=== PATIENT | female | born 1985 | race Caucasian/White ===

== ENCOUNTER 2016-12-26 15:19 | Emergency (ER) | payer OTHER ==
--- NOTE | 2016-12-26 15:59 | PROVIDER DOCUMENTATION ---
HPI-Chest Pain - General Source: patient - History of Present Illness-CP Location: reports: central Chest Pain Radiation: reports: back Quality of Pain: reports: aching Severity in ED: mild Onset/Duration: just prior to arrival (1400pm) Context/Activities at Onset: reports: light activity Modifying Factors: improves with: nothing Associated Symptoms: reports: shortness of breath. denies: abdominal pain, back pain, fever/chills, headache, syncope, vomiting Similar Symptoms Previously?: No Recently Seen Here or By Another Healthcare Provider: No <Elke Gordillo - Last Filed: 12/26/16 18:02> <Jaison Jones - Last Filed: 12/27/16 06:11> - General Chief Complaint: Chest Pain Stated Complaint: CHEST PAIN (32 WKS PREG) Time Seen by Provider: 12/26/16 15:40 Allergies/Adverse Reactions: Patient Allergies Allergy/AdvReac Type Severity Reaction Status Date / Time No Known Allergies Allergy Verified 12/26/16 16:24 Home Medications: Home Medication List Medication Instructions Recorded Confirmed Last Taken Type Multivit with Calcium,Iron,Min 1 tab PO DAILY 04/20/16 12/26/16 12/26/16 History [One Daily Women's] Nitrofurantoin [place]/Macrocryst 1 tab PO BID 07/14/16 07/14/16 07/14/16 History [Macrobid] Pnv Comb.no58/Iron Bisgly/FA 1 tab PO DAILY 07/14/16 07/14/16 07/14/16 History [ Capsule] Nitrofurantoin [place]/Macrocryst 100 mg PO BID #14 capsule 12/26/16 Unknown Rx [Macrobid] - History of Present Illness-CP Nature of Presenting Problem: 31 y/o F presents to ED cc of chest pain and heart racing. Pt is 32 weeks preg. Pt states she was driving home from work around 1400pm and had a sensation of her heart racing. Pt states after having palpitations she starting have some chest pain that radiated through her back with some shortness of breathe. Pt also reports having increased edema in bilat legs. Pt denies calf tenderness. Pt states before being preg she had to take Xanax to help control her anxiety and has not had any since . Pt states since being she has had more episodes of palpitation with no chest pain . Pt denies any leakage/ pain. (Elke Gordillo) Review of Systems - Adult - REVIEW OF SYSTEMS - ADULT Constitutional: denies: chills, fever Eyes: denies: blurred vision, double vision Ears, Nose, Mouth & Throat: denies: ear pain, throat pain Cardiovascular: reports: chest pain, palpitations Respiratory: reports: shortness of breath. denies: cough Gastrointestinal: denies: abdominal pain, diarrhea, nausea, vomiting Genitourinary: denies: dysuria, hematuria Musculoskeletal: denies: bone pain, back pain Neurological: denies: dizziness/vertigo, headache/migraines <Elke Gordillo - Last Filed: 12/26/16 18:02> Past History - Adult - PAST MEDICAL HISTORY-ADULT Review of Records: reports: Old Records Reviewed, Nursing Assessment Review Psychiatric: reports: anxiety Other Conditions: reports: denies history - PRIOR SURGERIES/PROCEDURES Surgical/Procedure History: reports: (x3) - PRIOR HOSPITALIZATIONS Prior Hospitalizations: reports: none - IMMUNIZATION STATUS Childhood Immunizations: See Nurse Assessment Flu Vaccine: See Nurse Assessment - FAMILY HISTORY Family History: reviewed, not pertinent - SOCIAL HISTORY Smoking: less than 1 pack/day Provider spent 3-5 mins advising pt. on dangers of tobacco.: Discussed manners to quit use, and f/u contacts for add'l counseling. Substance Use: denies <Elke Gordillo - Last Filed: 12/26/16 18:02> Physical Exam-General - PHYSICAL EXAM-ADULT Initial Vital Signs Reviewed: Yes - CONSTITUTIONAL General Appearance: appears well, alert, no apparent distress, other (32 wk preg ) - EYES Eyes: pink conjunctivae - NECK Neck: non-tender, full range of motion - RESPIRATORY Respiratory: chest non-tender, lungs clear, normal breath sounds - CARDIOVASCULAR Cardiovascular: normal peripheral pulses, no edema, tachycardia - GASTROINTESTINAL (ABDOMEN) Abdominal Exam: normal bowel sounds, non tender, soft, other (32 wk / gravid umbilicus palpable below xiphoid process) - MUSCULOSKELETAL Back Exam: no CVA tenderness, no vertebral tenderness Extremity: normal range of motion, non-tender, normal gait - SKIN Integumentary: normal color, normal turgor, warm/dry - NEUROLOGIC 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 States she is feeling better.) Reassessment #2 Time Reassessed: 17:54 Status: improving (Pt is texting on phone and in no pain . Pt understands plan . ) - XRAY 1 XRAY: Bilateral XRAY Study: Chest Impression: Normal XRAY Interpretation: No acute abnormality <Elke Gordillo - Last Filed: 12/26/16 18:02> <Jaison Jones - Last Filed: 12/27/16 06:11> - PLAN OF CARE/RESULTS Progress/Plan/Lab Results: PLAN: CHEST XRAY WHILE SHIELDING THE BABY, EKG, LABS PT VERBALLY UNDERSTANDS THE PLAN Laboratory Tests 12/26/16 12/26/16 12/26/16 16:12 16:12 16:12 WBC 13.11 H RBC 3.26 L Hgb 10.5 L Hct 31.1 L MCV 95.4 MCH 32.2 H MCHC 33.8 RDW Std Deviation 12.5 Plt Count 290 MPV 10.6 H Immature Gran % (Auto) 1.7 H Neut % (Auto) 61.6 Lymph % (Auto) 24.3 [place] % (Auto) 11.1 H Eos % (Auto) 1.1 Baso % (Auto) 0.2 Immature Gran # (Auto) 0.22 H Neut # (Auto) 8.08 H Lymph # (Auto) 3.19 [place] # (Auto) 1.45 H Eos # (Auto) 0.14 Baso # (Auto) 0.03 Sodium 135 L Potassium 3.8 Chloride 100 Carbon Dioxide 22 L Anion Gap 13 BUN 8 Creatinine 0.7 Estimated GFR/1.73 m2 > 60 BUN/Creatinine Ratio 11 Glucose 100 Calculated Osmolality 269 Calcium 8.6 L Total Bilirubin < 0.10 L AST 10 ALT 9 L Alkaline Phosphatase 92 Creatine Kinase 33 Troponin T < 0.010 Total Protein 5.7 L Albumin 3.2 L Globulin 2.5 Albumin/Globulin Ratio 1.3 Urine Source Urine Color Urine Turbidity Urine pH Ur Specific [place] Urine Protein Ur Glucose (Stick) Ur Ketones (Stick) Urine Blood Urine Nitrite Urine Bilirubin Urobilinogen Dipstick Urine Leukocytes Urine WBC (Auto) Urine RBC (Auto) U Epithel Cells (Auto) Urine Bacteria (Auto) 12/26/16 17:25 WBC RBC Hgb Hct MCV MCH MCHC RDW Std Deviation Plt Count MPV Immature Gran % (Auto) Neut % (Auto) Lymph % (Auto) [place] % (Auto) Eos % (Auto) Baso % (Auto) Immature Gran # (Auto) Neut # (Auto) Lymph # (Auto) [place] # (Auto) Eos # (Auto) Baso # (Auto) Sodium Potassium Chloride Carbon Dioxide Anion Gap BUN Creatinine Estimated GFR/1.73 m2 BUN/Creatinine Ratio Glucose Calculated Osmolality Calcium Total Bilirubin AST ALT Alkaline Phosphatase Creatine Kinase Troponin T Total Protein Albumin Globulin Albumin/Globulin Ratio Urine Source CLEAN CATCH Urine Color STRAW Urine Turbidity CLEAR Urine pH 7.0 Ur Specific [place] 1.004 Urine Protein NEGATIVE Ur Glucose (Stick) NEGATIVE Ur Ketones (Stick) NEGATIVE Urine Blood NEGATIVE Urine Nitrite POSITIVE A Urine Bilirubin NEGATIVE Urobilinogen Dipstick NORMAL Urine Leukocytes NEGATIVE Urine WBC (Auto) <10 Urine RBC (Auto) <10 U Epithel Cells (Auto) <10 Urine Bacteria (Auto) 4+ Orders Category Date Time Status Cardiac Monitoring DIRECTED Care 12/26/16 16:05 Active Saline Loc NOW Care 12/26/16 16:05 Active CHEST-2 VIEWS [RAD] Stat Exams 12/26/16 16:05 Draft CBC WITH ELECTRONIC DIFF [HEME] Stat Lab 12/26/16 16:12 Completed CK PROFILE [SP CHEM] Stat Lab 12/26/16 16:12 Completed COMPREHENSIVE METABOLIC PANEL [CHEM] Stat Lab 12/26/16 16:12 Completed TROPONIN T Stat Lab 12/26/16 16:12 Completed URINALYSIS [URINALYSIS] Stat Lab 12/26/16 17:25 Completed EKG [EKG] Stat Ther 12/26/16 16:05 Draft Vital Signs - 24 hr 12/26/16 15:25 Temperature 97.2 F L Pulse Rate 123 H Respiratory 20 Rate Blood Pressure 139/75 O2 Sat by Pulse 100 Oximetry (Elke Gordillo) Patient had no vaginal leakage of fluids or contractions. Feeling better at time of discharge. (,Vincent J.) Departure - Departure Time of Disposition Order: 17:46 Certified Medical Emergency: Emergent <Elke Gordillo - Last Filed: 12/26/16 18:02> <Jaison Jones - Last Filed: 12/27/16 06:11> - Departure DIAGNOSIS: Hyperventilation syndrome, Palpitations UTI (urinary tract infection) Qualifiers: Urinary tract infection type: site unspecified Hematuria presence: without hematuria Qualified Code(s): N39.0 - Urinary tract infection, site not specified Disposition: HOME 01 Condition: Stable Additional Instructions: ED Follow Up Instructions: You have been treated by a care provider in the Emergency Department. These instructions are being provided to you so you can have an understanding of how to care for yourself upon discharge. Upon discharge from the Emergency Department, you are responsible for making arrangements for follow-up care by a physician of your choice. Take all prescribed medications as directed. Return to the Emergency Department immediately for any new or worsening symptoms. You may call the Physician Referral phone number at [phone] to obtain a list of Physicians who are taking new patients. Prescriptions: Nitrofurantoin [place]/Macrocryst [Macrobid] 100 mg PO BID #14 capsule Referrals: None,PCP [Primary Care Provider] - Forms: Return to School/Parent Work Instructions: Hyperventilation, Urinary Tract Infection, [id number], Palpitations, [id number] Attestation - Scribe Verification/Attestation Scribe:: Elke Gordillo Acting as Scribe for:: Jaison Jones Scribe documention review:: This chart was documented by a scribe and accurately reflects the service the provider performed and the decisions made by the provider. <Elke Gordillo - Last Filed: 12/26/16 18:02> Physician Attestation - Physician Attestation I, the provider, attest to the following statement:: Jaison Jones Physician documentation Attestation:: This documentation recorded by the scribe accurately reflects the service I personally performed and the decisions made by me. <Jaison Jones - Last Filed: 12/27/16 06:11>
--- NOTE | 2016-12-26 16:13 | EKG Report ---
Test Performed on : 12/26/2016 3:28:54 PM Test Reason : Chest Pain Blood Pressure : / mmHG Vent. Rate : 103 BPM Atrial Rate : 103 BPM P-R Int : 154 ms QRS Dur : 074 ms QT Int : 334 ms P-R-T Axes : 022 009 021 degrees QTc Int : 437 ms Sinus tachycardia. Minimal voltage criteria for LVH, may be normal variant Cannot rule out Anterior infarct , age undetermined Abnormal ECG No previous ECGs available Unconfirmed Result
--- NOTE | 2016-12-26 16:23 | ED EKG INTERP ---
EKG Interpretation - EKG Time of EKG reading by physician:: 15:28 EKG Read and Signed by:: Jaison Jones EKG Interpretation (*Must complete 3 of following elements*): Abnormal Rate: 103 Rhythm: sinus tachy [place]: normal QRS: LVH CA Interval: normal ST Wave: normal
[2016-12-26 16:35] LABS: MANUAL DIFF NEEDED? NO
[2016-12-26 16:40] LABS: BASO% 0.2 % (0.0-0.8); EOS# 0.14 X1000 (0.0-0.7); EOS% 1.1 % (0.0-10.0); HEMATOCRIT 31.1 % (37.0-47.0); HEMOGLOBIN 10.5 g/dL (12.0-16.0); IMM GRAN# 0.22 X1000 (0.0-0.04); IMM GRAN% 1.7 % (0.0-0.5); LYMPH# 3.19 X1000 (1.2-3.4); LYMPH% 24.3 % (20.5-51.1); MCH 32.2 PG (27-31); MCHC 33.8 g/dL (33-37); MCV 95.4 FL (81-99); MONO# 1.45 X1000 (0.11-0.59); MONO% 11.1 % (1.7-9.3); MPV 10.6 FL (7.4-10.4); NEUT% 61.6 % (42.2-75.2); PLT 290 X1000 (130-400); RBC 3.26 XMIL (4.2-5.4)
[2016-12-26 17:01] LABS: AGAP 13; ALBUMIN 3.2 g/dL (3.5-5.0); ALKALINE PHOSPHATASE 92 U/L (32-104); BUN 8 mg/dL (8-22); CALCIUM 8.6 mg/dL (8.8-10.2); CHLORIDE 100 mmol/L (98-107); CK PROFILE 33 U/L (24-173); COSMO 269; GOT 10 U/L (10-30); GPT 9 U/L (10-36); POTASSIUM 3.8 mmol/L (3.5-5.1); SODIUM 135 mmol/L (136-145); TCO2 22 mmol/L (25-35); TOTAL BILIRUBIN < 0.10 mg/dL (0.20-1.00); TOTAL PROTEIN 5.7 g/dL (6.3-8.3)
--- NOTE | 2016-12-26 17:04 | Diag Imaging Result Document ---
PROCEDURE NAME: CHEST-2 VIEWS - 12/26/2016 FRONTAL AND LATERAL CHEST, 2 VIEWS: FINDINGS: The lungs are well expanded. The heart is not enlarged. The vessels are not distended. No pneumonia. No pleural effusions. IMPRESSION: No acute abnormality.
[2016-12-26 17:49] LABS: URINE MICRO REVIEW NEEDED? NO; URINE SOURCE CLEAN CATCH
[2016-12-26 17:57] LABS: BILIRUBIN URINE NEGATIVE (NEGATIVE); BLOOD URINE NEGATIVE (NEGATIVE); COLOR STRAW; GLUCOSE URINE NEGATIVE (NEGATIVE); LEUKOCYTES URINE NEGATIVE (NEGATIVE); NITRITE URINE POSITIVE (NEGATIVE); PROTEIN URINE NEGATIVE (NEGATIVE); SP GRAVITY URINE 1.004; TURBIDITY URINE CLEAR (CLEAR); UROBILINOGEN URINE NORMAL (NORMAL)
[2016-12-26 17:58] LABS: UR EPITHELIAL CELLS <10 /HPF (<10); URINE BACTERIA 4+ /HPF; URINE RBC <10 /HPF (<10); URINE WBC <10 /HPF (<10)
[2016-12-26 18:13] VITALS: BP 120/74
== END 2016-12-26 18:26 | disposition home or self-care (01) ==
LOC: ED 15:19
DX: O23.43 Unspecified infection of urinary tract in pregnancy, third trimester (principal); O26.893 Other specified pregnancy related conditions, third trimester; F45.8 Other somatoform disorders; R00.2 Palpitations; R94.31 Abnormal electrocardiogram [ECG] [EKG]; R07.89 Other chest pain; M54.9 Dorsalgia, unspecified; R06.02 Shortness of breath; O12.03 Gestational edema, third trimester; O99.333 Smoking (tobacco) complicating pregnancy, third trimester; F17.210 Nicotine dependence, cigarettes, uncomplicated; Z3A.32 32 weeks gestation of pregnancy; Z71.6 Tobacco abuse counseling
CPT/HCPCS: 71020; 80053; 81001; 82550; 84484; 85025; 93005

== ENCOUNTER 2017-02-09 08:43 | Inpatient (IN) ==
[2017-02-06 11:28] LABS: HEMATOCRIT 31.2 % (37.0-47.0); HEMOGLOBIN 10.3 g/dL (12.0-16.0); MCH 31.1 PG (27-31); MCV 94.3 FL (81-99); RBC 3.31 XMIL (4.2-5.4)
[2017-02-09] MEDS ORDERED: PEPCID PO ONE (08:46)
[2017-02-09] MEDS ORDERED: LR 1,000 ML IV SCH (08:46)
[2017-02-09] MEDS ORDERED: KEFZOL 1 GM/D5W 1 GM/50 ML IVPB IV PRN (08:46)
[2017-02-09] MEDS ORDERED: REGLAN PO ONE (08:46)
[2017-02-09] MEDS ORDERED: XYLOCAINE-MPF 2% ONE (09:51)
--- NOTE | 2017-02-09 10:08 | HISTORY AND PHYSICAL ---
HISTORY OF PRESENT ILLNESS: The patient is a 32-year-old, G 5, P 3-0-1-3 with intrauterine at 38 weeks. complications include prior x3. Desires sterility. The patient presents for a repeat section with bilateral tubal ligation. The risks, benefits, and alternatives were discussed with the patient and she desires to proceed. PAST MEDICAL HISTORY: None. PAST SURGICAL HISTORY: section x3. 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 OB HISTORY: Term x3. SAB x1. SOCIAL HISTORY: Positive tobacco. PHYSICAL EXAMINATION: VITAL SIGNS: Patient afebrile. Vital signs stable. GENERAL: Patient in no acute distress. ABDOMEN: Soft, gravid, nontender to palpation. RESPIRATORY: Respirations nonlabored. VASCULAR: No peripheral vascular abnormalities noted. ASSESSMENT AND PLAN: A 32-year-old, 5 para 3-0-1-3 with intrauterine at 38 weeks. We will proceed to the operating room for repeat section and bilateral tubal ligation. cc: Nikky Byrd MD
[2017-02-09 10:26] LABS: URINE SOURCE VOIDED
[2017-02-09 10:26] LABS: MANUAL DIFF NEEDED? NO
[2017-02-09 10:28] LABS: BASO% 0.2 % (0.0-0.8); EOS# 0.16 X1000 (0.0-0.7); EOS% 1.7 % (0.0-10.0); HEMATOCRIT 30.4 % (37.0-47.0); IMM GRAN# 0.09 X1000 (0.0-0.04); LYMPH# 2.46 X1000 (1.2-3.4); LYMPH% 26.7 % (20.5-51.1); MCH 30.8 PG (27-31); MCHC 32.9 g/dL (33-37); MCV 93.5 FL (81-99); MONO% 9.8 % (1.7-9.3); MPV 11.1 FL (7.4-10.4); NEUT% 60.6 % (42.2-75.2); PLT 227 X1000 (130-400); RBC 3.25 XMIL (4.2-5.4)
[2017-02-09 10:29] LABS: BILIRUBIN URINE NEGATIVE (NEGATIVE); BLOOD URINE NEGATIVE (NEGATIVE); CLARITY CLEAR (CLEAR); COLOR YELLOW; GLUCOSE URINE NEGATIVE (NEGATIVE); LEUKOCYTES URINE TRACE (NEGATIVE); NITRITE URINE NEGATIVE (NEGATIVE); PROTEIN URINE NEGATIVE (NEGATIVE); UROBILINOGEN URINE NORMAL
[2017-02-09] MEDS ORDERED: DURAMORPH ONE (11:13)
[2017-02-09] MEDS ORDERED: FENTANYL ONE (11:14)
[2017-02-09] MEDS ORDERED: BICITRA PO ONE (11:15)
[2017-02-09] MEDS ORDERED: SODIUM CHLORIDE 0.9% INJ ONE (11:15)
[2017-02-09] MEDS ORDERED: PEPCID IV ONE (11:15)
[2017-02-09] MEDS ORDERED: EPHEDRINE ONE (11:17)
[2017-02-09] MEDS ORDERED: ZOFRAN ONE (12:23)
[2017-02-09] MEDS ORDERED: PITOCIN ONE ×2 (12:26)
[2017-02-09] MEDS ORDERED: BENADRYL ONE (12:51)
[2017-02-09] MEDS ORDERED: PITOCIN 20 UNITS/LR 20 UNITS/1,000 ML IV.SOLN IV ONE (13:04)
[2017-02-09] MEDS ORDERED: M-M-R II VACCINE SUBQ ONE (13:04)
[2017-02-09] MEDS ORDERED: PHENERGAN IM PRN (13:04)
[2017-02-09] MEDS ORDERED: DEMEROL IM PRN (13:04)
[2017-02-09] MEDS ORDERED: AMBIEN PO PRN (13:04)
[2017-02-09] MEDS ORDERED: MYLICON PO PRN (13:04)
[2017-02-09] MEDS ORDERED: NORCO-5 PO PRN ×2 (13:04→13:29)
[2017-02-09] MEDS ORDERED: CYTOTEC PO PRN (13:04)
[2017-02-09] MEDS ORDERED: HYDROXYZINE IM PRN (13:04)
[2017-02-09] MEDS ORDERED: DULCOLAX PR PRN (13:04)
[2017-02-09] MEDS ORDERED: PITOCIN IM PRN (13:04)
[2017-02-09] MEDS ORDERED: DEMEROL PO PRN ×2 (13:04)
[2017-02-09] MEDS ORDERED: HYDROXYZINE PO PRN (13:04)
[2017-02-09] MEDS ORDERED: BOOSTRIX VACCINE IM ONE (13:04)
[2017-02-09] MEDS ORDERED: NARCAN INJ PRN (13:29)
[2017-02-09] MEDS ORDERED: BENADRYL IV PRN (13:29)
[2017-02-09] MEDS ORDERED: ZOFRAN IV PRN ×2 (13:29)
[2017-02-09] MEDS ORDERED: ZOFRAN ODT PO PRN (13:29)
[2017-02-09] MEDS ORDERED: NORCO-10 PO PRN (13:30)
[2017-02-09] MEDS: TORADOL IV SCH ×2 (13:42→19:45)
--- NOTE | 2017-02-09 18:12 | OPERATIVE NOTE ---
PROCEDURE DATE: 02/09/2017 PREOPERATIVE DIAGNOSES: 1. Intrauterine at 38 weeks. 2. Prior section x3. 3. Desires sterility. 4. Gestational hypertension. POSTOP DIAGNOSES: 1. Intrauterine at 38 weeks. 2. Prior section x3. 3. Desires sterility. 4. Gestational hypertension. PROCEDURE: Repeat low segment transverse section with bilateral tubal ligation. SURGEON: Dr. Byrd. AUTHORIZATION COORDINATOR: Dr. Solano ESTIMATED BLOOD LOSS: 500 mL. COMPLICATIONS: None. COUNTS: Correct x2. FINDINGS: Viable male weighing 9 pounds 7 ounces. Grossly normal uterus, bilateral fallopian tubes and ovaries. INDICATIONS FOR PROCEDURE: Patient is a 32-year-old G5, P3-0-1-3 with intrauterine at 38 weeks. Patient with elevated blood pressure 3rd trimester during . Labs returned within normal limits. Also a prior x3, desires sterility so decision made to proceed to the operating room for repeat section with bilateral tubal ligation. Risks, benefits, alternatives discussed with patient, she desires to proceed. PROCEDURE IN DETAIL: After proper informed consent was obtained the patient was taken to the operating room and placed in dorsal supine position with adequate spinal anesthesia. Abdomen was prepped and draped the normal sterile fashion for abdominal surgery. After proper time-out was performed a low transverse incision was made over prior scar using the scalpel. This was carried down to the underlying fascia which was scored in the midline. Fascial incision was extended laterally and cephalic using Brownlee scissors. Inferior aspect of fascial defect was grasped with Francisco clamps and dissected off the underlying rectus abdominis muscles. Similar was carried out to the superior aspect of the fascial defect. Muscles were in the midline, peritoneum was entered bluntly and stretched using pocketed spring machine operator's hand, bladder blade was placed to protect the bladder. A low transverse incision was made on the uterus and stretched using pocketed spring machine operator's hand, amniotomy was performed with return of clear fluid. was delivered in the vertex presentation with a nuchal cord reduced at the hysterotomy. Remainder of the fetus delivered without difficulty. Cord was doubly clamped, cut and was handed off to waiting pediatric staff. Placenta was delivered via fundal massage. The uterus was exteriorized and cleared free of all clot and debris. The hysterotomy was reapproximated using #1 chromic in a running locking fashion with additional [id number] sutures for added hemostasis. Attention was then turned to bilateral tubal ligation. The right fallopian tube was grasped carried out to the fimbria, mid- isthmic portion was then grasped with a Otis clamp and double suture ligated with loop portion being excised, similar was carried out to the left fallopian tube with hemostasis noted. Posterior cul-de-sac was cleared free of all clot and debris. The uterus returned to the abdomen. Surgical sites were reinspected, noted to be hemostatic. The hysterotomy was reinspected noted to be hemostatic. The abdomen was copiously irrigated. The peritoneum was then reapproximated using 3-0 chromic in a running continuous fashion, muscles made hemostatic using Bovie electrocautery and additional [id number] sutures for hemostasis. The fascia was then reapproximated using #1 PDS in a running continuous fashion. Subcutaneous tissue made hemostatic using Bovie electrocautery, subcutaneous tissue was reapproximated using 3-0 chromic in a running continuous fashion. The skin was reapproximated using 4-0 Monocryl in subcuticular fashion. Patient tolerated procedure well, was transferred to recovery in stable condition. cc: Nikky Byrd MD
[2017-02-09] MEDS: MYLICON PO SCH ×3 (18:18→23:06)
[2017-02-09] MEDS: PITOCIN 10 UNITS/LR 10 UNIT/1,000 ML IV.SOLN IV SCH (19:45)
[2017-02-09] MEDS: PERICOLACE PO SCH (23:06)
[2017-02-10] MEDS ORDERED: TORADOL IV ONE (02:00)
[2017-02-10] MEDS: PITOCIN 10 UNITS/LR 10 UNIT/1,000 ML IV.SOLN IV SCH (04:12)
[2017-02-10 06:03] LABS: HEMATOCRIT 27.6 % (37.0-47.0); HEMOGLOBIN 8.9 g/dL (12.0-16.0); MCH 30.5 PG (27-31); MCHC 32.2 g/dL (33-37); MCV 94.5 FL (81-99); MPV 11.2 FL (7.4-10.4); RBC 2.92 XMIL (4.2-5.4)
[2017-02-10] MEDS: MYLICON PO SCH ×4 (08:02→21:05)
[2017-02-10] MEDS: MOTRIN PO PRN ×2 (09:03→19:20)
[2017-02-10] MEDS: NORCO-10 PO PRN ×3 (09:03→19:20)
[2017-02-10] MEDS ORDERED: LR 1,000 ML IV SCH (13:04)
--- NOTE | 2017-02-10 15:30 | PROGRESS NOTE ---
DATE: 02/10/2017 She is day 1 and postop day 1 from a delivery. She is without complaints. The vital signs stable. She is afebrile. PHYSICAL EXAMINATION: Within normal limits. Bandage is dry, +2 lower extremity edema. DATA: Hemoglobin 8.9, down from 10.3. Continue routine postop and care. Probable DC in the morning. cc: MD Nikky Koenig MD
[2017-02-10] MEDS: PERICOLACE PO SCH (21:06)
[2017-02-11] MEDS: NORCO-10 PO PRN ×4 (00:08→12:50)
[2017-02-11] MEDS: MOTRIN PO PRN ×2 (03:19→12:50)
[2017-02-11 08:01] VITALS: BP 127/68
[2017-02-11] MEDS: MYLICON PO SCH ×5 (10:09→18:13)
[2017-02-11] MEDS ORDERED: PNEUMOVAX 23 IM ONE (10:45)
== END 2017-02-11 17:50 | disposition home or self-care (01) ==
LOC: P.LD 08:43
PROVIDERS: ADMIT Obstetrics & Gynecology; ATTEND Obstetrics & Gynecology